=== PATIENT | female | born 1975 | race Caucasian/White ===

== ENCOUNTER 2017-01-05 09:07 | Inpatient (IN) | payer OTHER ==
[~2017-01-05] VITALS: Ht 157.5 cm; Wt 73.5 kg
[2017-01-05 10:00] LABS: ABSOLUTE BASOPHIL COUNT 0 /CUMM (0.0-0.2); ABSOLUTE EOSINOPHIL COUNT 0.1 /CUMM (0.0-0.7); ABSOLUTE GRANULOCYTE CT 8.8 /CUMM (1.4-6.5); ABSOLUTE LYMPH COUNT 1.1 /CUMM (1.2-3.4); ABSOLUTE MONOCYTE COUNT 0.8 /CUMM (0.10-0.60); BASOPHIL % 0.1 % (0.0-2.0); EOSINOPHIL % 0.8 % (0-5); HEMATOCRIT 30.1 % (37-47); MEAN CORPUSCULAR HGB 29.2 PG (27.0-31.0); MEAN CORPUSCULAR HGB CONC 33.6 G/DL (33.0-37.0); MEAN CORPUSCULAR VOLUME 86.9 FL (81.0-99.0); MEAN PLATELET VOLUME 8.7 FL (7.4-10.4); PLATELET COUNT 211 /CUMM (130-400); RBC DISTRIBUTION WIDTH 13.4 % (11.5-14.5); RED BLOOD CELL CT 3.47 /CUMM (4.20-5.40); WHITE BLOOD CELL COUNT 10.8 /CUMM (4.8-10.8)
[2017-01-05 10:02] LABS: GRANULOCYTE % 81.5 % (42.2-75.2)
[2017-01-05] MEDS ORDERED: PRENATAL TABLE1 EAC2 PO (15:03)
[2017-01-05] MEDS ORDERED: ACYCLOVIR400 M1 PO (15:04)
[2017-01-05] MEDS ORDERED: LEXAPRO10 M1 PO (15:04)
--- NOTE | 2017-01-05 15:10 | History & Physical ---
General Information and HPI MD Statement: I have seen and personally examined PEYTON BLACK and documented this H&P. The patient is a 41 year old female at [38] weeks and [4] days gestation who presented with a chief complaint of [onset of labor]. Source of Information: patient, old records Exam Limitations: no limitations History of Present Illness: 41 yo , LMP 04/10/2016 AND TALHA 01/15/2017 @ 38 4/7 WKS PRESENTED IN LABOR. NO SROM NO VAG BLEEDING ISSUES FOR 1.) 41 yo 1st trim screen @ 13 0/7 wks NL NT< NL Mat T 21 declined cvs/ amnio 2.) h/o HSV on acyclovis from 36 wks on 3.) anxiety - initially Lexapro 20 mg/ day now Lexapro 10 mg/day 4.) h/o LEEP - no cervical changes 16 - 22 wks 5.) h/o PVCs- neg cardiac eval - no meds Allergies/Medications Allergies: Coded Allergies: Sulfa (Sulfonamide Antibiotics) (Intermediate, HIVES/ITCHY THROAT 01/05/17) nitrofurantoin (Intermediate, HIVES/ITCHY THROAT 01/05/17) sulfamethoxazole (From Bactrim) (Intermediate, HIVES/ITCHY THROAT 01/05/17) trimethoprim (From Bactrim) (Intermediate, HIVES/ITCHY THROAT 01/05/17) Home Med list Acyclovir 400 MG TABLET 1 TAB PO D h/o hsv 1 (Reported) Escitalopram Oxalate (Lexapro) 10 MG TABLET 1 TAB PO DAILY anxiety (Reported) Vit No.130/Iron/FA ( Tablet) 27 MG IRON-800 MCG TABLET 1 TAB PO DAILY vitamin support (Reported) Compliance With Home Meds: GOOD 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 Para: 1 Last Menstrual Period: 04/10/2016 Estimated Delivery Date: 01/15/2017 Past sterile processing tech History: none Medical History Blood Transfusion Hx: No Neurological: NONE EENT: NONE Cardiovascular: h/o PVCs- neg cardiac evel - no meds Respiratory: NONE Gastrointestinal: NONE Hepatic: NONE Renal: NONE Musculoskeletal: NONE Psychiatric: anxiety Endocrine: NONE Blood Disorders: NONE Cancer(s): NONE CT MANAGER/Reproductive: HSV - ACYCLOVIR 400 MG/D Surgical History Pertinent Surgical History: 05/30/1994 TOP Past Family/Social History Family History Relations & Conditions if any Relation not specified for: *No pertinent family history Psychosocial History Where do you live? Home Who Do You Live With? spouse, self Smoking Status: Never Smoked ETOH Use: denies use Illicit Drug Use: denies illicit drug use Review of Systems Review of Systems: NEG FOR CARDIAC PULMONARY GI COMPLAINTS Exam & Diagnostic Data Last 24 Hrs of Vital Signs/I&O T 98.7 P 82 R 1 BP 110 /86 O2 99% RA Intake & Output 01/05 1600 01/05 0800 01/05 0000 Intake Total Output Total Balance Patient 162 lb Weight Obstetric Exam Wgt Gained During : 30 Pelvimetry: SHOULD BE ADEQUATE FOR AVGE SIZED BABY Dilation (cm): 4 Effacement (%): 100 Station: 0 Membranes: intact Fluid: unknown Fundal Height (cm): 38 Multiple Gestation? No Contractions: Q 2 TO 3 MIN Infant #1 - FHR Baseline: 120 Category: 1 Estimated Weight: 6#3 OZ Presentation: VTX Patient for Induction? No Physical Exam General Appearance Alert, Oriented X3, Cooperative, No Acute Distress Skin No Significant Lesion Cardiovascular Regular Rate Lungs Normal Air Movement Abdomen Normal Bowel Sounds, Soft, No Tenderness, No Hepatospenomegaly, FUNDAL HT 38 CM VTX CONTXNS Q 3 MIN- FHR CAT 1 Neurological Normal Gait, Normal Speech Extremities No Tenderness/Swelling Pelvic (FEMALE) Appearance Normal Labs Blood Type & Rh: A + Antibody Screen: N Hct/Hgb & Platelets #1: 12.1/35.9 PLTS 319,000 Hct/Hgb & Platelets #2: 11.2/ 34.8 PLTS 292,000 Rubella: I VDRL #1: N VDRL #2: N HbsAg: N HIV #1: N HIV #2 N 1 Hr P 3 Hr PG: N/A Group B Strep: N Initial Ultrasound: 06/11/2016 S=D=U/S @ 8 0/7 WKS Anatomy Ultrasound: 08/28/2016 S=D=U/S @ 20 WKS NL ANATOMY Ultrasound for EFW: 12/31/2016 45% 6#2oz @ [facility] Genetic Testin07/10/2017 NL NT MAT T 21 WNL - MALE NO CVS/ AMNIO Last 24 Hrs of Labs/Nitin: Laboratory Tests 01/05/17 0950: Urinalysis LIGHT H, Urine Color YEL, Urine Clarity HAZY H, Urine pH 8.0, Ur Specific [place] 1.015, Urine Protein TRACE H, Urine Ketones NEG, Urine Nitrite NEG, Urine Bilirubin NEG, Urine Urobilinogen 0.2, Ur Leukocyte Esterase NEG, Ur Microscopic SEDIMENT EXAMINED, Urine RBC 5-10 H, Urine WBC 3-5 H, Ur Epithelial Cells MOD H, Urine Bacteria MANY H, Hyaline Casts RARE H, Urine Mucus FEW, Urine Hemoglobin MOD H, Urine Glucose NEG 01/05/17 0945: CBC w Diff NO MAN DIFF REQ, RBC 3.47 L, MCV 86.9, MCH 29.2, RDW 13.4, MPV 8.7, Gran % 81.5 H, Lymphocytes % 10.4 L, Monocytes % 7.2, Eosinophils % 0.8, Basophils % 0.1, Absolute Granulocytes 8.8 H, Absolute Lymphocytes 1.1 L, Absolute Monocytes 0.8 H, Absolute Eosinophils 0.1, Absolute Basophils 0, PUBS MCHC 33.6 Microbiology 01/05 1330 URINE ROUT: Urine Culture - RECD Assessment/Plan Assessment/Plan: IUP @ TERM IN ACTIVE LABOR NEEDS PAIN MANAGEMENT PLAN ADMIT IVF - STADOL AND LIKELY EPIDURAL As Ranked By This Provider Problem List: 1. 2. Advanced maternal age (AMA), 40 years or greater 3. Anxiety Core Measures/Miscellaneous Baugh Catheter Date In: 01/05/17 Still Needed? Yes Venous Thromboembolism VTE Risk Factors: Age > 40, / VTE Contraindications: Active Bleeding (FALL RISK) VTE Diagnosis: No Beta Antony Is Beta Antony a Home Med? No If No, Why Not? N/A Antibiotics Is Patient on Antibiotics? No Attending MD Review Statement Attending Statement Attending MD Statement: examined this patient, discussed with family, reviewed EMR data (avail), discussed w/nursing Attending Assessment/Plan: Arpit CHAPA MD
--- NOTE | 2017-01-05 18:25 | PN- OBGYN ---
Surgical Brief Attending Note Brief Attending Note: FULLY DILATED @ 13:00 (O TO +1 STATION ALLOWED TO LABOR DOWN BEGAN PUSHING @ 15:09 (0 TO +1 STATION) PT MAKING GOOD EFFORT W/ PUSHING W/ PUSHING VARIABLES TO 80-90 BPM FROM 140"S BASELINE X 30 TO 50 SEC W/ QUICK RECOVERY PT MAINTIANED W/ IVF BOLUS AND MAT 02 BY MASK 16:06 BRADYCARDIA X 4 MIN TO 70 - 90 BPM- RECOVERY TO 140 -150 BMP AFTER 15 MIN RECOVERY RETURN TO PUSHING @ 16 :40 PERSISTENT VARIABLES W/ EACH CONTRACTION ( 80 - 80 BMP X 40 SEC) WITH SOME SLOW RECOVERY. BASELINE 140-150 W/ AVGE VARIABILTY WITH PUSHING CAPUT AND MOLDING NOTED CAN ONLY ADAVNCE TO +1 STATION W/ PUSHING. PERSISTENT CAT II TRACING NO SIGNIFICANT DESECENT OF THE VERTEX W/ PUSHING (? OP) DISCUSSED W/ PT AND LIKELY 1:30 TO 2 MORE HRS OF PUSHING ADVISED FOR C/S PT AND AGREE FOR C/S RODRÍGUEZ CHAPA MD
--- NOTE | 2017-01-05 18:25 | PN- OBGYN ---
Surgical Brief Attending Note Brief Attending Note: CTSP @ 13:02 WYATT CARDIA FHR HAD BEEN 110- 120 W/ GOOD ACCELLERATIONS PT WAS FRED Q 3 MIN GOT TO 8 CM. HAD RECEIVED 1500 ml CRYSTALLOID EPIDURAL PLACED MAT BP BASELINE 110/60'S MAT BP 90'S/50 FHR FELL TO 70 - 90 FOR 10 TO 11 MINUTES EXAM FULLY O STATION AND O STATION SROM THEN CLEAR FLUID PT RXED W/ TWO DOSES EPHEDRINE MAT O2 AND CHANGING TO RT AND LT SIDES CODE 5 CALLED AND HERNANDEZ PLACED 3 GOOD REASONS FOR THE BRADYCARDIA FHR RECOVERED THEN TO 130'S AND ACCELLS OF FHR PLAN TO CATEFULLY OBSWRVE- ALLOW TO LABOR DOWN OVER THE NEXT 1 HR PT AND UNDERSTAND AND AGREE Arpit CHAPA MD
--- NOTE | 2017-01-05 18:28 | Labor & Delivery Summary ---
Delivery Summary Section: Section: primary Indication: PERSISTENT CAT II TRACING ARREST OF DESCENT Anesthesia: EPIDURAL IN LABOR SPINAL FOR C/S Episiotomy/Lacerations: Episiotomy/Lacerations: none Placenta: Placenta: spontanteous, normal, 3 vessel Anesthesia: EPIDURAL IN LABOR / SPINAL FOR C/S Cord PH Value: 7.30 Baby's Weight: 6#2oz 2775 Apgars - 1 Min: 9 Apgars - 5 Min: 9 Additional Comments: DEFLEXED OP IN THE OR LOW SEGMENT ATONY RESPONDED TO INTRAMYOMETRIAL PITOCIN, IV PITOCIN, IM METHERGINE
[2017-01-05 18:40] VITALS: BP 118/60
--- NOTE | 2017-01-05 18:53 | Operative Report ---
Operative/Inv Procedure Report Surgery Date: 01/05/17 Name of Procedure: Primary low cervical transverse section Pre-Operative Diagnosis: Persistent category 2 tracing, arrest of descent Post-Operative Diagnosis: Same plus occiput posterior deflexed presentation Estimated Blood Loss: 750 ML Surgeon/Accounting Machine Mechanic: EDUARD PERALTA,RODRÍGUEZ Henley claims assistant Anesthesia: epidural in labor, spinal at delivery Monitors: Blood pressure cuff, EKG electrode, pulse oximeter IV Fluids: 1100 crystalloid Implants: None Urine Output: 200 ml Drains: Baugh Specimens: none Microbiology: None Tourniquet: None Complications: None Condition: Good Operative Indication: Persisting category 2 tracing, arrest of descent, question occiput posterior Operative/Procedure Note Note: Patient was brought to the operating room where timeout was discussed by the team and agreed upon. Patient was given 2 g Kefzol on arrival to the OR. Patient was placed in the OR table in the sitting position epidural catheter was removed, and spinal anesthetic was placed. After evidence of good placement of spinal anesthetic patient was returned to dorsal supine position. Pneumatic compression boots were placed to lower extremities. Baugh catheter had been placed in the bladder during labor. Patient was prepped and draped in usual sterile fashion. After good level of anesthetic, her was brought to the OR, to join his Libby. Transverse incision was made in the skin 2 fingerbreadths above the symphysis. This incision was carried down the fascia, and the fascia was sharply divided in the midline. Rectus muscles were both sharply and manually divided in midline. The parietal peritoneum was identified , elevated and divided both transversely and horizontally. The utero vesicular fold of the bladder peritoneum was identified, elevated, and incised transversely. The bladder was reflected inferiorly. Transverse incision was made in the low uterine segment and the uterine cavity was bluntly entered. Clear fluid was noted. Deflexed occiput posterior presentation was noted. Hand was introduced into the uterine cavity of the vertex was carefully flexed and brought through the uterine incision. 's mouth and nasopharynx bulb suction on the anterior-abdominal wall and the rest of infant's body was delivered without complication at 17:19 on 01/05/2017. 's umbilical cord was triply clamped cut and the infant was handed to pediatric team for evaluation. Live viable male infant weight 6 lbs. 2 oz. 2775 g Apgars 9, 9, and 9 cord pH 7.30 placenta was spontaneously delivered intact normal configuration 3 vessel cord. The uterus was exteriorized and draped with wet lap pad. Uterine cavity was wiped clean of any residual membranes. Uterine incision showed no cervical extension. Uterine incision was grasped with Thompson's and then closed. First layer was running locking second layer running imbricating. Mild low segment atony responded to IV Pitocin intramyometrial Pitocin and IM Methergine. Pelvis was irrigated fluid was aspirated. Normal configuration of the uterus fallopian tubes and ovaries. Uterus returned the abdominal pelvic cavity. Good hemostasis continued. Parietal peritoneum was closed with a running suture. Muscles inspected found to be dry. The rectus muscle reapproximated midline with horizontal mattress suture. Fascia was closed with 2 separate segments running intermittently locking suture. Subcutaneous was irrigated and the fluid was aspirated. Subcutaneous tissue was then closed with a running plain gut. Skin edges reapproximated with Monocryl. At completion procedure, sponge, needle, and instrument counts were correct 4. Pressure dressing was applied to the abdominal wall incision. Using manual pressure, uterine fundus appeared firm and subsequent evacuation of the uterus showed no significant retained blood or clot within the uterus or the upper vaginal vault. There was good hemostasis noted in the vaginal area completion the procedure. Patient was transferred out the OR table to the recovery room in good condition Findings: Time of 17:19 on 01/05/2017. At time of delivery deflexed occiput posterior, male was delivered. weight 6 lbs. 2 oz., 2775 g Apgars 9, 9, and 9. Cord pH 7.30. Normal placenta 3 vessel cord. Amniotic fluid was still clear in the operating room. Normal configuration the uterus fallopian tubes and ovaries. Low segment uterine atony responded to intramyometrial Pitocin, IV Pitocin and IM Methergine EBL 750ml Discharge Disposition:
[2017-01-05 22:29] LABS: ABSOLUTE BASOPHIL COUNT 0 /CUMM (0.0-0.2); ABSOLUTE EOSINOPHIL COUNT 0 /CUMM (0.0-0.7); ABSOLUTE GRANULOCYTE CT 17.8 /CUMM (1.4-6.5); ABSOLUTE LYMPH COUNT 0.9 /CUMM (1.2-3.4); ABSOLUTE MONOCYTE COUNT 1.4 /CUMM (0.10-0.60); BASOPHIL % 0 % (0.0-2.0); EOSINOPHIL % 0 % (0-5); HEMATOCRIT 27.3 % (37-47); MEAN CORPUSCULAR HGB 29.2 PG (27.0-31.0); MEAN CORPUSCULAR HGB CONC 33.9 G/DL (33.0-37.0); MEAN CORPUSCULAR VOLUME 86.3 FL (81.0-99.0); MEAN PLATELET VOLUME 8.1 FL (7.4-10.4); PLATELET COUNT 201 /CUMM (130-400); RED BLOOD CELL CT 3.16 /CUMM (4.20-5.40)
[2017-01-05 22:49] LABS: GRANULOCYTE % 88.5 % (42.2-75.2); WHITE BLOOD CELL COUNT 20.1 /CUMM (4.8-10.8)
[2017-01-06 09:39] LABS: ABSOLUTE BASOPHIL COUNT 0 /CUMM (0.0-0.2); ABSOLUTE EOSINOPHIL COUNT 0 /CUMM (0.0-0.7); ABSOLUTE GRANULOCYTE CT 13.7 /CUMM (1.4-6.5); ABSOLUTE LYMPH COUNT 1.4 /CUMM (1.2-3.4); ABSOLUTE MONOCYTE COUNT 1.3 /CUMM (0.10-0.60); BASOPHIL % 0.1 % (0.0-2.0); EOSINOPHIL % 0.1 % (0-5); HEMATOCRIT 26.9 % (37-47); MEAN CORPUSCULAR HGB 29.1 PG (27.0-31.0); MEAN CORPUSCULAR HGB CONC 33.4 G/DL (33.0-37.0); MEAN CORPUSCULAR VOLUME 87.1 FL (81.0-99.0); MEAN PLATELET VOLUME 8.7 FL (7.4-10.4); RBC DISTRIBUTION WIDTH 14.1 % (11.5-14.5); RED BLOOD CELL CT 3.08 /CUMM (4.20-5.40); WHITE BLOOD CELL COUNT 16.4 /CUMM (4.8-10.8)
--- NOTE | 2017-01-06 09:59 | PN- OBGYN ---
Surgical Brief Attending Note Brief Attending Note: No complaints. Doing well. Status post c/s last night. Sitting up in chair nursing. Minimal ambulation. Joel catheter in place. Tolerating pain and po. Unsure amt of lochia yet. VSSAF FF@U, appropriately tender Inc: exam deferred due to nursing. Will return later to exam or f/u with RN once back in bed. Ext: no calf tenderness. 1+ to 2+ pedal edema I/O: 1000 out overnight approx 350 / 3 hours Laboratory Tests 01/06/17 0900: CBC w Diff Pending, WBC Pending, RBC Pending, Hgb Pending, Hct Pending, MCV Pending, MCH Pending, RDW Pending, Plt Count Pending, MPV Pending, PUBS MCHC Pending 01/05/17 2220: CBC w Diff NO MAN DIFF REQ, RBC 3.16 L, MCV 86.3, MCH 29.2, RDW 14.0, MPV 8.1, Gran % 88.5 H, Lymphocytes % 4.6 L, Monocytes % 6.9, Eosinophils % 0, Basophils % 0 L, Absolute Granulocytes 17.8 H, Absolute Lymphocytes 0.9 L, Absolute Monocytes 1.4 H, Absolute Eosinophils 0, Absolute Basophils 0, PUBS MCHC 33.9 01/05/17 0950: Urinalysis LIGHT H, Urine Color YEL, Urine Clarity HAZY H, Urine pH 8.0, Ur Specific [place] 1.015, Urine Protein TRACE H, Urine Ketones NEG, Urine Nitrite NEG, Urine Bilirubin NEG, Urine Urobilinogen 0.2, Ur Leukocyte Esterase NEG, Ur Microscopic SEDIMENT EXAMINED, Urine RBC 5-10 H, Urine WBC 3-5 H, Ur Epithelial Cells MOD H, Urine Bacteria MANY H, Hyaline Casts RARE H, Urine Mucus FEW, Urine Hemoglobin MOD H, Urine Glucose NEG 01/05/17 0945: CBC w Diff NO MAN DIFF REQ, RBC 3.47 L, MCV 86.9, MCH 29.2, RDW 13.4, MPV 8.7, Gran % 81.5 H, Lymphocytes % 10.4 L, Monocytes % 7.2, Eosinophils % 0.8, Basophils % 0.1, Absolute Granulocytes 8.8 H, Absolute Lymphocytes 1.1 L, Absolute Monocytes 0.8 H, Absolute Eosinophils 0.1, Absolute Basophils 0, PUBS MCHC 33.6 Microbiology 01/05 1330 URINE ROUT: Urine Culture - RES a/p POD 1 (<24hrs). Overall Doing well. Good urine output. Hemodynamically stable. Will await until after lunchtime to d/c joel. Await am lab. Routine postop care.
[2017-01-06 10:40] LABS: GRANULOCYTE % 83.8 % (42.2-75.2); PLATELET COUNT 207 /CUMM (130-400)
--- NOTE | 2017-01-07 09:47 | PN- Post Delivery/GYN ---
Subjective Subjective: FEELING WELL OOB Review of Systems Constitutional: Reports: no symptoms. Denies: chills, fever. EENTM: Denies: blurred vision, double vision, visual changes. Cardiovascular: Denies: palpitations. Respiratory: Denies: cough, short of breath. Gastrointestinal: Denies: nausea, vomiting. Musculoskeletal: Denies: back pain. Neurological/Psychological: Denies: anxiety, depressed. Objective Last 24 Hrs of Vital Signs/I&O VSS Physical Exam General Appearance Alert, Oriented X3, Cooperative, No Acute Distress Skin No Breakdown HEENT PERRLA Neck Supple Cardiovascular Regular Rate Lungs Clear to Auscultation Abdomen Soft, FUNDUS FIRM EDEMA OF MONS Extremities 2+ EDEMA PEDAL Pelvic (FEMALE) lochia sanganous light Assessment/Plan Assessment/Plan pod +2 vss afebrile Problem List: 1. Attending MD Review Statement Attending Statement Attending MD Statement: examined this patient, discussed with family, discussed with nursing
[2017-01-08] MEDS ORDERED: DOCUSATE SODIU100 M3 PO (11:47)
[2017-01-08] MEDS ORDERED: PERCOCET 5-3251 EACH PO (11:47)
[2017-01-08] MEDS ORDERED: FERROUS SULFAT325 M3 PO (11:47)
[2017-01-08] MEDS ORDERED: IBUPROFEN800 M1 PO (11:47)
[2017-01-08] MEDS ORDERED: LASIX20 M1 PO (12:14)
--- NOTE | 2017-01-08 12:41 | PN- Post Delivery/GYN ---
Subjective Subjective: DOING WELL READY FOR DISCHARGE PEDAL EDEMA IS SIGNIFICANT NO PIH COMPLAINTS Review of Systems: NEG FOR CARDIAC, PULMONARY GI COMPLAINTS Objective Last 24 Hrs of Vital Signs/I&O AFEBRILE VSS- BP 110-120/ 60 -70 Physical Exam General Appearance Alert, Oriented X3, Cooperative, No Acute Distress Skin No Significant Lesion Cardiovascular Regular Rate Lungs Normal Air Movement Abdomen Normal Bowel Sounds, Soft, No Tenderness, No Hepatospenomegaly, INCISION CKLEAN DRY INTACT UTERUS FIRM MIDLINE NONTENDER 3 FB BELOW UMBILICUS Neurological Normal Gait, Normal Speech Extremities No Tenderness/Swelling, NEG GALLO'S 3+ PEDAL PITTING EDEMA UP HER SHINS TO JUST BELOW HER KNEES Reproductive (FEMALE) Normal female genitalia, AVGE LOCHIA Current Medications: Current Medications Sig/Gary Start time Last Medication Dose Route Stop Time Status Admin Acetaminophen 650 MG Q4P PRN 01/05 1900 DCD PO Docusate Sodium 100 MG AT BEDTIME PRN 01/05 1900 DCD PO Enoxaparin Sodium 40 MG DAILY@0500 01/06 0500 DCD 01/08 SC 0542 Escitalopram Oxalate 10 MG DAILY 01/06 1000 DCD 01/08 PO 1019 Hydroxyzine HCl 100 MG AT BEDTIME NEED.. 01/06 0000 DCD PO 01/09 0001 Ibuprofen 800 MG .STK-MED ONE 01/07 2354 DC PO 01/07 2355 Ibuprofen 800 MG .STK-MED ONE 01/07 1636 DC PO 01/07 1637 Ibuprofen 800 MG Q6P PRN 01/05 1900 DCD 01/08 PO 0542 Magnesium Hydroxide 30 ML DAILY NEEDED PRN 01/050 DCD PO 01/08 1901 Oxycodone/ 1 TAB Q4P PRN 01/06 1200 DCD Acetaminophen PO Oxycodone/ 2 TAB Q4P PRN 01/05 1900 DCD Acetaminophen PO Last 24 Hrs of Labs/Nitin: POD #1 H/H 06/17.9 Assessment/Plan Assessment/Plan STABLE PPD/ POD #3 READY FOR DISCHARGE HOME: FULL RETURN GI/ FUNCTION- AFEBRILE. AMBULATING FINE. PAIN IS CONTROLLED WITH PO PAIN MEDS ISSUES 1.) PEDAL EDEMA- LASIX 20 mg/DAY X 8 DAYS PP (ALSO BANANA PO DAILY) 2.) ANEMIA - PN VITS/ IRON DAILY - COALCE NEEDED (PT NEEDS NL DAILY BM 3.) PAIN MANAGEMENT MOTRIN / PERCOCET WAS NEEDED 4.) F/UP 2 AND 6 WKS PP 5.) ANXIETY LEXAPRO 10 mg/ DAY Problem List: 1. 2. Advanced maternal age (AMA), 40 years or greater 3. Anxiety 4. Arrest of descent, delivered, current hospitalization 5. delivery delivered 6. Non-reassuring electronic monitoring tracing 7. Occiput posterior presentation of fetus 8. Anemia due to acute blood loss 9. Pedal edema Attending MD Review Statement Attending Statement Attending MD Statement: examined this patient, discussed with family, reviewed EMR data (avail), discussed with nursing Attending Assessment/Plan: Arpit CHAPA MD
--- NOTE | 2017-01-08 12:42 | Discharge Summary ---
Visit Information Visit Dates Admission Date: 01/05/17 Discharge Date: 01/08/17 Hospital Course Course Attending Physician: EDUARD PERALTA,RODRÍGUEZ George Primary Care Physician: AGUSTÍN PERALTA,VICKI Hospital Course: 41 yo , LMP 04/10/2016 AND TALHA 01/15/2017 @ 38 4/7 WKS PRESENTED IN LABOR. NO SROM NO VAG BLEEDING ISSUES FOR 1.) 41 yo 1st trim screen @ 13 0/7 wks NL NT< NL Mat T 21 declined cvs/ amnio 2.) h/o HSV on acyclovis from 36 wks on 3.) anxiety - initially Lexapro 20 mg/ day now Lexapro 10 mg/day 4.) h/o LEEP - no cervical changes 16 - 22 wks 5.) h/o PVCs- neg cardiac eval - no meds Pt progressed in labor, received epidural. With the epidural she had a drop in her BP requiring 2 doses ephedrine. (during that time she had become fully dilated and had SROM clear fluid) At this time we had a drop in the heart rate from baseline 110-120 Category I , to 70 -90 BPM x 10 to 11 minutes. 13:00 "fully dilated" FHR recovered w/ ephedrine, changing maternal positioning, Mat O2 by mask, IVF bolus. Recovery was to FHR baseline 120"s with good variabilty. Pt was allowed to "labor down x 2 hrs" No descent in the VTX from 0 to +1 station during those 2 hrs. 15:09 began pushing with good maternal effort. FHR with pushing, baseline fHR 140's, avge variabilty, with every contraction there was variable decells down to 80-90 BMP x 30 -50 sec, with quick recovery. Pt maintained w/ maternal O2 by mask, changing side to side with positioning. 16:06, there was a 4 min bradycardia (70-90 BPM) that then recovered to 140-150 BPM, average variabilty. 16:40, FHR 140-150 baseline w/ variable decells with each contraction to 70-80 bpm x 30-40 sec, now @ 1/3 decells with slow recovery to baseline. VTX still @ 0 to +1 sation between contractions, caput and molding descends to +1 with pushing- no pregressive descent of the vtx. With the persistent Cat II tracing and @ least 1 to 2 hrs more of pushing pt and advised for c/s. Family in agreement Time of 17:19 on 01/05/2017. At time of delivery deflexed occiput posterior, male was delivered. weight 6 lbs. 2 oz., 2775 g Apgars 9, 9, and 9. Cord pH 7.30. Normal placenta 3 vessel cord. Amniotic fluid was still clear in the operating room. Normal configuration the uterus fallopian tubes and ovaries. Low segment uterine atony responded to intramyometrial Pitocin, IV Pitocin and IM Methergine EBL 750ml Post operatively, required IVF boluses over the 1st 5 hrs PP to maintain adequate urine output. Then patient maintained adequate urine output. She was easily advanced to a regular diet. her pain was controlled with po pain meds. She remained afebrile with a nl BP. admission H/H 10/30, POD #1 her H/H was 9.0/26.9. Pt was ready for discharge home on POD #3 ISSUES 1.) PEDAL EDEMA- LASIX 20 mg/DAY X 8 DAYS PP (ALSO BANANA PO DAILY) 2.) ANEMIA - PN VITS/ IRON DAILY - COALCE NEEDED (PT NEEDS NL DAILY BM 3.) PAIN MANAGEMENT MOTRIN / PERCOCET WAS NEEDED 4.) F/UP 2 AND 6 WKS PP 5.) ANXIETY LEXAPRO 10 mg/ DAY Complications: none Allergies: Coded Allergies: Sulfa (Sulfonamide Antibiotics) (Intermediate, HIVES/ITCHY THROAT 01/05/17) nitrofurantoin (Intermediate, HIVES/ITCHY THROAT 01/05/17) sulfamethoxazole (From Bactrim) (Intermediate, HIVES/ITCHY THROAT 01/05/17) trimethoprim (From Bactrim) (Intermediate, HIVES/ITCHY THROAT 01/05/17) Significant Procedures: primary Low Cervical Cesarian section Pertinent Lab Results: admission H/H 10/30 POD #1 H/H 9.0/26.9 Neg urine c/s Disposition Summary Disposition Principal Diagnosis: term Live child delivered Additional Diagnosis: Arrest of descent persistent Cat II tracing acute anemia due to blood loss anxiety pedal edema Discharge Disposition: home or self care Discharge Instructions General Discharge Information Code Status: Full Code Patient's Diet: regular Patient's Activity: Self limited- full activities by 6 wks PP Follow-Up Instructions/Appts: f/up 2 and 6 wks PP Medications at Discharge Discharge Medications: Stop taking the following medications: Acyclovir (Acyclovir) 400 MG TABLET ORAL Every Day Continue taking these medications: Vit No.130/Iron/FA ( Tablet) 27 MG IRON-800 MCG TABLET 1 Tablet ORAL DAILY Escitalopram Oxalate (Lexapro) 10 MG TABLET 1 Tablet ORAL DAILY Start taking the following new medications: Ibuprofen (Ibuprofen) 800 MG TABLET 800 Milligram ORAL EVERY SIX HOURS NEEDED as needed for UTERINE CRAMPING Qty = 60 Refills = 6 Comments: Last Taken:01/08/17 Time:541 Oxycodone HCl/Acetaminophen (Percocet 5-325 MG Tablet) 5 MG-325 MG TABLET 1-2 Tablet ORAL EVERY 4 HOURS NEEDED as needed for PAIN SCALE 4- 10 Qty = 30 No Refills Docusate Sodium (Docusate Sodium) 100 MG CAPSULE 100 Milligram ORAL AT BEDTIME as needed for STOOL SOFTENER Qty = 30 Refills = 2 Ferrous Sulfate (Ferrous Sulfate) 325 MG (65 MG IRON) TABLET 1 Tablet ORAL DAILY Qty = 60 Refills = 2 Furosemide (Lasix) 20 MG TABLET 1 Tablet ORAL DAILY Qty = 8 No Refills Copies To: CLOTILDE DEJESUS DO, MD Review Statement Documenting Attending: EDUARD PERALTA,RODRÍGUEZ George
== END 2017-01-08 12:24 | DRG 765 ==
LOC: CBCO 09:07 → GNO 09:38
PROVIDERS: ADMIT Obstetrics & Gynecology
PROC: 10D00Z1 Extraction of Products of Conception, Low, Open Approach (ICD-10-PCS; principal; 2017-01-05)
DX: O76 Abnormality in fetal heart rate and rhythm complicating labor and delivery (principal); D62 Acute posthemorrhagic anemia; O64.0XX0 Obstructed labor due to incomplete rotation of fetal head, not applicable or unspecified; O62.1 Secondary uterine inertia; Z3A.38 38 weeks gestation of pregnancy; Z37.0 Single live birth; O12.05 Gestational edema, complicating the puerperium; O09.513 Supervision of elderly primigravida, third trimester; O99.344 Other mental disorders complicating childbirth; F41.9 Anxiety disorder, unspecified; O90.81 Anemia of the puerperium
CPT/HCPCS: GNOS; 36415; 81001; 87086; J0595; J0690; J1650; J1885; J2210; J7120